=== PATIENT | male | born 1945 | race Hispanic/Latino ===

== ENCOUNTER 2017-09-13 06:26 | Day surgery (SDC) | payer MEDICARE ==
[2017-09-10 13:48] VITALS: BP 158/78
[2017-09-10 13:56] LABS: BASOPHILS % (AUTO) 0.8 % (0.0-5.0); EOSINOPHILS % (AUTO) 0.2 % (0.0-8.0); MEAN CORPUSCULAR HEMOGLOBIN 33.1 pg (27.0-33.0); MEAN CORPUSCULAR HGB CONC 37.5 g/dL (32.0-36.0); MEAN CORPUSCULAR VOLUME 88.2 fL (79-99); MONOCYTES % (AUTO) 8.4 % (3.0-13.0); NEUTROPHILS % (AUTO) 75.6 % (40.0-77.0); NUCLEATED RED BLOOD CELLS 0.1 % (0.0-0.19); PLATELET COUNT (AUTO) 121 K/uL (130-400); RED BLOOD CELL COUNT(AUTO) 3.62 MIL/uL (4.50-6.20); RED CELL DISTRIBUTION WIDTH 13.6 % (11.0-15.5); WHITE BLOOD COUNT (AUTO) 4.8 K/uL (4.8-10.8)
[2017-09-10 13:57] LABS: APPEARANCE,URINE Clear (CLEAR); BILIRUBIN,URINE Negative (NEGATIVE); COLOR,URINE Yellow (YELLOW); GLUCOSE, URINE (UA) Negative (NEGATIVE); KETONES,URINE Negative (NEGATIVE); LEUKOCYTE ESTERASE ,URINE Negative (NEGATIVE); NITRATE,URINE Negative (NEGATIVE); OCCULT BLOOD,URINE Moderate (NEGATIVE); PROTEIN,URINE Negative (NEGATIVE)
[2017-09-10 14:05] LABS: CREATININE 0.9 mg/dL (0.5-1.5); POTASSIUM 3.9 mmol/L (3.5-5.1)
[2017-09-10 14:08] LABS: INR 1.02 (0.85-1.15); PARTIAL THROMBOPLASTIN TIME 29.2 SEC (26.3-35.5); PROTHROMBIN TIME 10.7 SEC (9.6-11.6)
[2017-09-10 14:15] LABS: BACTERIA,URINE None Seen /HPF (None Seen); SQUAMOUS EPITHELIAL CELL,UR 0-2 /LPF (0-2); WBC,URINE 0-1 /HPF (0-1)
[2017-09-13] VITALS (12 sets, daily range): BP systolic 118–172; BP diastolic 72–85
[~2017-09-13] VITALS: Ht 165.1 cm; Wt 70.4 kg
[~2017-09-13 06:26] MED LIST: CARV6.25 PO; CHOL100040 PO; FERR325T22 PO; POTA20TA82 PO; SODIUM CHLORIDE 0.9% 500ML 500 ML IV SCH
[2017-09-13] MEDS ORDERED: SODIUM CHLORIDE 0.9% 1000ML 1,000 ML IV ONE (07:31)
[2017-09-13] MEDS ORDERED: NITROGLYCERIN 5 MG/ML 10 ML VIAL IV ONE (09:07)
[2017-09-13] MEDS ORDERED: BIVALIRUDIN 250 MG/VIAL IV ONE (09:07)
[2017-09-13] MEDS ORDERED: ISOVUE-370 50ML VIAL IV ONE (09:07)
[2017-09-13] MEDS ORDERED: IOPAMIDOL-370 100 ML VIAL IV ONE (09:07)
[2017-09-13] MEDS ORDERED: LIDOCAINE HCL 2% 20ML ONE (09:07)
[2017-09-13] MEDS ORDERED: HEPARIN SODIUM 1000UNIT/ML 10ML VIAL ONE (09:07)
[2017-09-13] MEDS ORDERED: MIDAZOLAM HCL 1 MG/ML 2ML VIAL ONE (09:29)
[2017-09-13] MEDS ORDERED: PRASUGREL HCL 10 MG TABLET ONE (09:58)
[2017-09-13] MEDS ORDERED: ASPIRIN 325MG EC TAB 325 MG TABLET.DR PO ONE (09:58)
[2017-09-13] MEDS ORDERED: ASPIRIN 81MG TAB.CHEW ONE ×2 (10:04)
[2017-09-13] MEDS ORDERED: LABETALOL 20 MG/4 ML DISP.SYRIN IV ONE (10:22)
[2017-09-13 11:56] LABS: CHOLESTEROL 149 mg/dL (<200); HDL CHOLESTEROL 59 mg/dL (29-71); LDL DIRECT 86 mg/dL (0-99); TRIGLYCERIDES 75 mg/dL (30-200)
== END 2017-09-13 17:10 | disposition home or self-care (01) ==
LOC: DAH 06:26
PROVIDERS: ATTEND Internal Medicine Cardiovascular Disease
DX: I25.118 Atherosclerotic heart disease of native coronary artery with other forms of angina pectoris (principal); I10 Essential (primary) hypertension; Z85.46 Personal history of malignant neoplasm of prostate; Z79.01 Long term (current) use of anticoagulants
CPT/HCPCS: 36415 ×2; 71045; 80048; 80061; 81001; 85025; 85610; 85730; 93005; 93458; A4606; C1760; C1769; C1874; C1887; C1894 ×2; C9600; J0583; J1644; J2250; J3490 ×2; J7030; Q9967 ×2; 99152; 99153